=== PATIENT | female | born 1955 | race Caucasian/White ===

== ENCOUNTER 2017-06-16 07:45 | Day surgery (SDC) | payer OTHER ==
[~2017-06-16] VITALS: Ht 154.9 cm; Wt 82.7 kg
[~2017-06-16 07:45] MED LIST: ALBU8.5H3 INH; CYCL-319 PO; HYDR-3498 PO; LEVO500T72 PO; LEVO75TA5 PO; LISI10TA2 PO; METF500T4 PO; NAPR375T PO; OMEP40CA6 PO; TRAM50TA2 PO
[2017-06-16 09:28] VITALS: Ht 154.9 cm; Wt 82.7 kg
[2017-06-16] MEDS ORDERED: LISI10TA2 PO (09:38)
[2017-06-16] MEDS ORDERED: RANI150C11 PO (09:41)
[2017-06-16] MEDS ORDERED: DICL75TA2 PO (09:41)
[2017-06-16] MEDS ORDERED: GABA300C16 PO (09:41)
[2017-06-16] MEDS ORDERED: DOCU100C PO (09:41)
[2017-06-16] MEDS ORDERED: IBUP100T29 PO (09:41)
[2017-06-16] MEDS ORDERED: GABA100C14 PO (09:41)
[2017-06-16] MEDS ORDERED: PANT40TA4 PO (09:41)
--- NOTE | 2017-06-16 10:55 | OPPN ---
Date/Time of Note Date/Time of Note DATE: 06/16/17 TIME: 10:52 Operative Report Preoperative Diagnosis Abdominal pain Chronic heartburn Change in the bowel habit Rectal bleeding Postoperative Diagnosis Gastroesophageal reflux disease Gastritis with erosions Polyp right colon Lipoma right colon Internal and external hemorrhoids Operation/Procedure Performed Esophagogastroduodenoscopy and biopsy Colonoscopy and biopsy Provider: SAIMA SONG MD Anesthesia Type: MAC Estimated blood loss: none Transfusion Required: no Specimens Gastric mucosal biopsy Biopsy of the colon polyp Biopsy of the lipoma Grafts/Implants: none Complications: no SAIMA SONG MD Jun 16, 2017 10:55
[2017-06-16] MEDS ORDERED: PROPOFOL 40 ML ONE (10:59)
[2017-06-16 11:20] VITALS: BP 140/60; PULSE 62; RESP 18
--- NOTE | 2017-06-16 11:46 | GILP ---
DATE OF PROCEDURE: 06/16/2017 PROCEDURE PERFORMED: 1. Esophagogastroduodenoscopy and biopsy. 2. Colonoscopy and biopsy. SURGEON: Tono Guzmán MD. PREOPERATIVE DIAGNOSES: 1. Abdominal pain. 2. Chronic heartburn. 3. Change in the bowel habits. 4. Rectal bleeding. POSTOPERATIVE DIAGNOSES: 1. Gastroesophageal reflux disease. 2. Gastritis with erosions. 3. Gastric mucosal biopsies were taken for Helicobacter pylori test. 4. Colonoscopy all the way to the cecum. 5. Right colon polyp was biopsied. 6. Lipoma in the right colon and biopsies were taken. 7. Internal and external hemorrhoids. INDICATION: Ms. Pushpa aaron a pedal is a 62-year-old female patient who had upper abdominal pain and chronic heartburn not responding to therapy. She also noticed change in the bowel habits and rectal bleeding. She has never had a screening colonoscopy. The procedures and possible complications were well explained to the patient. The patient understood and consented to the procedures. DESCRIPTION OF PROCEDURE: Under the influence of anesthesia, the gastroscope was carefully introduced into the esophagus, and under direct vision, it was advanced to the stomach, into the pylorus, into the duodenal bulb, and descending duodenum. FINDINGS: Esophagus: The patient had gastroesophageal reflux disease. Stomach: She had gastritis with erosions. Gastric mucosal biopsies were taken for H pylori test. Duodenum was normal. The colonoscope was carefully introduced in the rectum, and under direct vision, it was advanced all the way to the cecum. FINDINGS: The patient had a small right colon polyp and it was removed using the biopsy forceps. She also had a lipoma in the right colon and biopsies were taken. She was noted to have internal and external hemorrhoids. She tolerated the procedures very well. There was no complication from the procedures. At the end of procedure, she was awake with stable vital signs and she was discharged home in the care of her family. IMPRESSION: Please see postop diagnoses. PLAN: 1. Await histopathology reports. 2. Continue pantoprazole, Zantac and MiraLAX. 3. Next screening colonoscopy in 10 years. Dictated By: MD EMERSON Juares/cee/josef /Document#: [id number]
== END 2017-06-16 14:40 | disposition home or self-care (01) ==
LOC: GIL 07:45
PROVIDERS: ATTEND Internal Medicine Gastroenterology
DX: Z12.11 Encounter for screening for malignant neoplasm of colon (principal); D12.5 Benign neoplasm of sigmoid colon; K21.9 Gastro-esophageal reflux disease without esophagitis; K29.60 Other gastritis without bleeding; D17.79 Benign lipomatous neoplasm of other sites; E03.9 Hypothyroidism, unspecified; E11.9 Type 2 diabetes mellitus without complications; I10 Essential (primary) hypertension
CPT/HCPCS: 82962; 87081; 88305

== ENCOUNTER 2018-02-01 09:39 | Emergency (ER) | END 2018-02-01 12:00 | disposition home or self-care (01) ==

== ENCOUNTER 2018-02-15 10:36 | Emergency (ER) | END 2018-02-15 15:08 | disposition home or self-care (01) ==

== ENCOUNTER 2018-03-06 22:52 | Emergency (ER) | END 2018-03-07 04:32 | disposition home or self-care (01) ==

== ENCOUNTER 2018-09-08 05:31 | Inpatient (IN) | END 2018-09-11 11:20 | disposition home or self-care (01) | DRG 472 ==

== ENCOUNTER 2019-02-08 17:10 | Emergency (ER) | payer OTHER ==
[~2019-02-08] VITALS: Ht 154.9 cm; Wt 85.0 kg
[~2019-02-08 17:10] MED LIST changes: -ALBU8.5H3 INH; +CHOL500010 PO; -CYCL-319 PO; +DULO60CA59 PO; +FER325 PO; +GABA100C14 PO; +GABA300C16 PO; -HYDR-3498 PO; +HYDR-3609 PO; +LEVO100T82 PO; -LEVO500T72 PO; -LEVO75TA5 PO; +LISI-471 PO; -LISI10TA2 PO; +LORA10TA3 PO; +METF500T24 PO; -METF500T4 PO; -NAPR375T PO; +OMEG-158 PO; -OMEP40CA6 PO; +PANT40TA3 PO; +POLY17PO6 PO; +RANI150T5 PO; -TRAM50TA2 PO
[2019-02-08 17:49] VITALS: Ht 154.9 cm; Wt 85.0 kg
[2019-02-08] MEDS ORDERED: SOD CHLORIDE 0.9% 1,000 ML IV STA (20:23)
[2019-02-08] MEDS ORDERED: DIPHENHYDRAMINE 50 MG INJ IV STA (20:23)
[2019-02-08] MEDS ORDERED: KETOROLAC 30 MG INJ IV STA (20:23)
[2019-02-08] MEDS ORDERED: METOCLOPRAMIDE 10 MG INJ IV STA (20:23)
--- NOTE | 2019-02-08 20:37 | ERD ---
ER Documentation Chief Complaint Chief Complaint madrigal x 1 week 07/21 HPI This is a 63-year-old female patient who presents to the emergency room with complaint of headache increasing in severity and intensity x1 week. Patient returned from a 2-week stay in [place] where she said she was staying with someone who had brucellosis and is concerned she may have been exposed as she drank the same milk. +nausea, no vomiting, no diarrhea, + body aches,+ photophobia, + phonophobia, increased pain when lying down. She has had migraines in the past but have never felt like the headache she has now this one is much worse. ROS All systems reviewed and are negative except as per history of present illness. Medications Home Meds Active Scripts Hydrocodone/Acetaminophen (Hydrocodone-Acetamin 10-325 mg) 1 Each Tablet, 1 TAB PO Q4H PRN for PAIN LEVEL 6-10, #20 TAB Prov:MATTHEW GUZMAN 09/10/18 Reported Medications Cholecalciferol (Vitamin D3) 5,000 Unit Tablet, 5000 UNIT PO DAILY, TAB 09/08/18 [place]-3/Dha/Epa/Fish Oil (FISH OIL 1,000 MG SOFTGEL) 1 Each Capsule, 1 EACH PO DAILY, CAP 09/08/18 Polyethylene Glycol* (Miralax*) 17 Gm Powd.pack, 17 GM PO DAILY PRN for CONSTIPATION, #30 PACKET 09/08/18 Ranitidine Hcl* (Ranitidine Hcl*) 150 Mg Tablet, 150 MG PO HS, #30 TAB 09/08/18 Loratadine* (Loratadine*) 10 Mg Tablet, 10 MG PO DAILY, #30 TAB 09/08/18 Ferrous Sulfate* (Ferrous Sulfate*) 325 Mg Tabec, 325 MG PO DAILY, TAB 09/08/18 Duloxetine Hcl* (Duloxetine Hcl*) 60 Mg Capsule.dr, 60 MG PO DAILY, #30 CAP 09/08/18 Gabapentin* (Gabapentin*) 300 Mg Capsule, 300 MG PO QHS, #60 CAP 09/08/18 Gabapentin* (Gabapentin*) 100 Mg Capsule, 100 MG PO TID, #90 CAP 09/08/18 Metformin Hcl* (Metformin Hcl*) 500 Mg Tablet, 500 MG PO WITH BREAKFAST DINNE, #60 TAB 09/08/18 Levothyroxine Sodium* (Levoxyl*) 100 Mcg Tablet, 100 MCG PO BEFORE BREAKFAST, #30 TAB 09/08/18 Lisinopril* (Lisinopril*) 20 Mg Tablet, 20 MG PO DAILY, #30 TAB 09/08/18 Pantoprazole* (Protonix*) 40 Mg Tablet.dr, 40 MG PO DAILY, TAB 09/08/18 Allergies Allergies: Coded Allergies: No Known Allergy (Unverified , 02/08/19) PMhx/Soc History of Surgery: Yes (lap katie, c-sec x3, ) Anesthesia Reaction: No Hx Neurological Disorder: No Hx Respiratory Disorders: No Hx Cardiac Disorders: No Hx Psychiatric Problems: No Hx Miscellaneous Medical Probl: Yes (NECK PAIN , CERVICAL STENOSIS , MYELOPATHY.) Hx Alcohol Use: Yes (soacially) Hx Substance Use: No Hx Tobacco Use: No Smoking Status: Never smoker Physical Exam Vitals Vital Signs Date Temp Pulse Resp B/P (MAP) Pulse Ox O2 O2 Flow FiO2 Time Delivery Rate 02/08/19 98.6 91 18 135/89 100 17:49 (104) Physical Exam Const: Mild distress Head: Atraumatic, no lesions, no bulging temporal arteries Eyes: Normal Conjunctiva, PERRL, EOMI ENT: Normal External Ears, Nose and Mouth. Neck: Full range of motion. No meningismus. No lymphadenopathy Resp: Clear to auscultation bilaterally Cardio: Regular rate and rhythm, no murmurs Abd: Soft, non tender, non distended. Normal bowel sounds Skin: No petechiae or rashes Back: No midline or flank tenderness Ext: No cyanosis, or edema Neur: Awake and alert, CNII-XII intact, equal smile, no facial droop, no pronator drift, neg [id number], clear speech, sensation intact Psych: Normal Mood and Affect Result Diagram: 02/08/19210402/08/192104 Results 24 hrs Laboratory Tests Test 02/08/19 21:05 White Blood Count 12.8 10^3/ul Red Blood Count 4.19 10^6/ul Hemoglobin 12.0 g/dl Hematocrit 37.9 % Mean Corpuscular Volume 90.5 fl Mean Corpuscular Hemoglobin 28.6 pg Mean Corpuscular Hemoglobin Concent 31.7 g/dl Red Cell Distribution Width 14.1 % Platelet Count 301 10^3/UL Mean Platelet Volume 8.8 fl Immature Granulocytes % 0.900 % Neutrophils % 61.7 % Lymphocytes % 29.0 % Monocytes % 6.4 % Eosinophils % 1.6 % Basophils % 0.4 % Nucleated Red Blood Cells % 0.0 /100WBC Immature Granulocytes # 0.110 10^3/ul Neutrophils # 7.9 10^3/ul Lymphocytes # 3.7 10^3/ul Monocytes # 0.8 10^3/ul Eosinophils # 0.2 10^3/ul Basophils # 0.1 10^3/ul Nucleated Red Blood Cells # 0.0 10^3/ul Erythrocyte Sedimentation Rate 56 mm/Hr Prothrombin Time 12.3 Sec Prothrombin Time Ratio 1.0 INR International Normalized Ratio 0.90 Activated Partial Thromboplast Time 26.2 Sec Sodium Level 142 mmol/L Potassium Level 4.3 mmol/L Chloride Level 104 mmol/L Carbon Dioxide Level 32 mmol/L Anion Gap 6 Blood Urea Nitrogen 14 mg/dl Creatinine 0.81 mg/dl Est Glomerular Filtrat Rate mL/min > 60 mL/min Glucose Level 122 mg/dl Calcium Level 9.7 mg/dl Current Medications Medications Dose Sig/Roge Start Time Status Last (Trade) Ordered Route PRN Stop Time Admin Dose Reason Admin Sodium 1,000 ml @ Q1H STAT 02/08/19 DC 02/08/19 Chloride 1,000 mls/hr IV 20:23 21:34 02/08/19 21:22 10 mg ONCE STAT 02/08/19 DC 02/08/19 Metoclopramid IV 20:23 21:15 e HCl 02/08/19 20:30 (Reglan) Ketorolac 30 mg ONCE STAT 02/08/19 DC 02/08/19 Tromethamine IV 20:23 21:16 (Toradol) 02/08/19 20:30 25 mg ONCE STAT 02/08/19 DC 02/08/19 Diphenhydrami IV 20:23 21:16 ne HCl 02/08/19 20:30 (Benadryl) Procedures/MDM This is a 63-year-old female patient who presents the emergency room with complaint of headache x1 week. ED COURSE: The patient was stable throughout ED course. I kept the patient and/or family informed of laboratory and diagnostic imaging results throughout the ED course. DIAGNOSTIC IMAGING: Read by radiologist. CT Brain IMPRESSION: 1. No intracranial hemorrhage, hydrocephalus, or cerebral infarction. 2. Minimal to mild age related microvascular change. PROCEDURES: None. MEDICATIONS GIVEN: Toradol, Reglan, Benadryl, normal saline Patient tolerated medication well with no adverse reactions. Patient reported improvement in pain. MDM: Upon reassessment patient states she feels improved and her headache has resolve d. Discussed testing for brucellosis and treatment. Patient choosing to follow- up with her PMD for testing and not take empiric antibiotic at this time. Reviewed s/sx of Brucellosis and red flags to return to ED. The patient was well-appearing with VSS and without neurological deficits at time of reevaluation and discharge. Clinical and diagnostic exam not suggestive of infection, intracranial process, SAH, SDH, neoplasm, meningitis, encephalitis, aneurysm, thrombus, temporal arteritis, sinusitis. The patient has been provided with instructions on self-care including use of analgesia, reducing triggers, and need for close follow-up with primary care physician within 1-2 days for reevaluation. The patient has been instructed to return immediately for worsening symptoms, change in pattern of current symptoms, or other acute problems. DISPOSITION: The patient has been discharge home to follow-up with community physician. Departure Diagnosis: Primary Impression: Migraine Condition: Stable Patient Instructions: Headache, Migraine (Classical) Referrals: [facility] Additional Instructions: Thank you very much for allowing us to participate in your care. Your health and safety is our top priority at [facility]. Call your primary care doctor TOMORROW for an appointment during the next 2-4 days and bring all the information and medications prescribed. Have prescriptions filled and follow precisely the directions on the label. If the symptoms get worse and your provider is unavailable, return to the Emergency Department immediately. JOSUE FOUNTAIN NP Feb 08, 2019 20:37
[2019-02-08] MEDS ORDERED: MAGN100T6 PO (23:43)
[2019-02-08] MEDS ORDERED: IBUP-1542 PO (23:43)
[2019-02-09 00:09] VITALS: BP 137/78; PULSE 78; RESP 22
== END 2019-02-09 00:11 | disposition home or self-care (01) ==
LOC: FTE 17:10
DX: G43.909 Migraine, unspecified, not intractable, without status migrainosus (principal); Z79.84 Long term (current) use of oral hypoglycemic drugs
CPT/HCPCS: 36415; 70450; 80048; 85025; 85610; 85651; 85730; 96374; 96375; 99285; J1200; J1885; J2765; J7030